=== PATIENT | male | born 1955 | race Caucasian/White ===

== ENCOUNTER 2020-11-08 08:58 | Emergency (ER) | payer MEDICARE, SELFPAY ==
[2020-11-08 08:58] VITALS: BP 161/111; PULSE 83; RESP 18; TEMP 36.6; O2SAT 97; BMI 28.9
[2020-11-08 09:06] VITALS: BMI 28.9
--- NOTE | 2020-11-08 09:42 | CT_ITS ---
STUDY: CT BRAIN WITHOUT CONTRAST REASON FOR EXAM: Male, 65 years old. Headache RADIATION DOSAGE (If Supplied By Facility): CTDIvol = ( 44.99 ) mGy, DLP = ( 812.98 ) mGycm TECHNIQUE: Transaxial CT imaging of the brain was performed without administration of intravenous contrast material. Individualized dose optimization techniques were used for this CT. COMPARISON: No relevant priors. FINDINGS: Normal soft tissue structures. Normal calvarium. Normal size ventricles and extra-axial spaces for the patient''s age. Normal white matter tracts of the cerebral hemispheres. Normal basal ganglia and thalami. Normal brainstem. Normal cerebellum. There is no intracranial hemorrhage. There are no findings of an acute ischemic infarction. Normal visualized paranasal sinuses. CT/Brain/Head without Contrast IMPRESSION: Normal unenhanced CT scan of the brain. Electronically Signed: Shane Velez MD at 10:43 EDT Tel , Service support ,
--- NOTE | 2020-11-08 09:43 | EX.ED.DYSGE1 ---
HPI History of Present Illness Chief Complaint: Neuro S/Sx Informant: patient Onset/Context/Timing Onset: Weeks (3) Context: Gradual Onset Timing: Continuous Quality: Sharp Location: Left occiput Worsened by: Nothing Relieved by: Ibuprofen Narrative Narrative: Patient presents with headache that has been getting worse over the past 3 weeks. Patient states it started out as a generalized headache but is now in the left occipital area. Patient states that his pain is sharp. Patient states he takes ibuprofen which seems to help with the pain. Patient states that over the last 3 to 4 days he has noted some left facial weakness. Patient states he is having difficulty holding water in his mouth and closing his left eye due to the weakness. Patient also admits to some dizziness where he feels off balance. PFSH PFSH no medical history Allergy/AdvReac Type Severity Reaction Status Date / Time No Known Allergies Allergy Verified 11/08/20 09:03 no surgical history Social History Smoking Status: Light Smoker (<10/day) ROS ROS ED Constitutional Constitutional ED: Denies chills or fever(s) Eyes Eyes: Denies blurry vision or change in vision ENT ENT ED: Reports ear pain left and sore throat; Denies rhinorrhea Cardiovascular Cardiovascular: Denies chest pain or palpitations Respiratory/Chest Respiratory/Chest: Denies cough or dyspnea Gastrointestinal Gastrointestinal: Denies nausea or vomiting Genitourinary Genitourinary ED: Denies dysuria or hematuria Musculoskeletal Musculoskeletal: Reports neck pain; Denies back pain Integumentary Denies abscess or rash Neurologic Neurologic: Reports headache(s) and weakness Allergic/Immunologic Allergic/Immunologic ED: Denies mouth swelling or urticaria EXAM Physical Exam Const Vital Signs: 11/08/20 08:58 Temperature 97.8 F Temperature Source Temporal Pulse Rate 83 Respiratory Rate 18 Blood Pressure 161/111 H Blood Pressure Mean 127 Pulse Ox 97 Oxygen Delivery Method Room Air Positive well nourished and well developed General Appearance ED: well developed HEENT Reports moist mucous membranes Eyes PERRL and EOMs intact bilaterally Neck supple and no JVD Resp normal respiratory effort and clear to auscultation bilaterally Cardio regular rate, regular rhythm and no murmurs GI normal to inspection, nondistended, normoactive bowel sounds and non-tender Palpation: soft Extremity normal to inspection General Extremety ED: Negative for edema or tenderness General Extremity: Negative for edema Neuro oriented x3 and no sensory deficits noted Neuro Narrative: Cranial nerves II through XII are intact except for left facial weakness. There is weakness with elevating the left eyebrow, closing the left eye, and smiling. There are no sensory deficits. Strength is otherwise 5/5 in the upper and lower extremities. Sensorium / Orientation: alert Motor Exam: strength 5/5 throughout Psych mental status grossly normal Skin no rashes or lesions noted MDM MDM MDM Narrative Medical decision making narrative: Patient was given IV fluids, Reglan, and Benadryl. CT scan of the brain was obtained. There is no acute intracranial abnormality. This was interpreted by the radiologist and reviewed by myself. CBC and comprehensive metabolic profile were obtained and were essentially within normal limits. Patient was advised of his findings. 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 Patient states his headache was still present but slightly better. Patient was given a dose of Toradol here. Patient wants to go home. Patient was instructed to rest in a dark quiet room. Patient was instructed to follow-up with his primary care physician in 5 to 7 days. Patient was instructed return if worse in any way. Patient understood and was agreeable with the plan. All questions were answered. Lab Data Attestation: I reviewed the patient's lab results. Labs: Laboratory Results - last 24 hr 11/08/20 11/08/20 09:05 09:05 WBC 9.6 RBC 5.27 Hgb 16.0 Hct 48.9 MCV 92.8 MCH 30.4 MCHC 32.7 RDW Std Deviation 44.4 H RDW Coeff of Brandie 13.1 Plt Count 425 MPV 9.1 Immature Gran % (Auto) 0.400 Neut % (Auto) 83.1 H Lymph % (Auto) 8.5 L [place] % (Auto) 5.6 Eos % (Auto) 2.0 Baso % (Auto) 0.4 Absolute Neuts (auto) 8.0 H Absolute Lymphs (auto) 0.82 L Nucleated RBC % 0 Sodium 138 Potassium 3.7 Chloride 104 Carbon Dioxide 26.0 Anion Gap 8 BUN 22 H Creatinine 1.12 Estim Creat Clear Calc 64.00 Est GFR (MDRD) Af Amer 84 Est GFR (MDRD) Non-Af 70 BUN/Creatinine Ratio 19.6 Glucose 115 H Calcium 9.1 Total Bilirubin 0.50 AST 33 ALT 114 H Alkaline Phosphatase 139 H Total Protein 7.7 Albumin 3.6 Globulin 4.1 Albumin/Globulin Ratio 0.9 Radiography Diagnostic Testing: Radiology Impression Brain CT 11/08/20 09:42 IMPRESSION: Normal unenhanced CT scan of the brain. Electronically Signed: Shane Velez MD at 10:43 EDT Tel , Service support , Discharge Plan Triage Chief Complaint: Neuro S/Sx ED Provider: Steven Alves Dx/Rx/DC Orders Clinical Impression: Almendarez's palsy, Headache Instructions: ED Almendarez's Palsy, ED Headache, Tension Primary Care Provider: Care Physician,No Primary Referrals: Gogo Garcia MD [STAFF PHYSICIAN] - 3-5 Days Care Physician,No Primary [Primary Care Provider] - Disposition Disposition: Home, Self Care
[2020-11-08 09:49] LABS: Absolute Lymphocyte Count 0.82 X10^3/uL (0.83-4.51); Basophil# 0.04 X10^3/uL; Basophil% 0.4 % (0-1); Eosinophil# 0.19 X10^3/uL; Hematocrit 48.9 % (40-54); Lymphocyte # 0.82 X10^3/ul (0.83-4.51); Lymphocyte % 8.5 % (19-41); Mean Corp Hgb Conc 32.7 g/dL (32-36); Mean Corpuscular Hgb 30.4 pg (27.0-32.0); Mean Corpuscular Volume 92.8 fL (80-94); Mean Platelet Vol. 9.1 fl (6.2-12.0); Monocyte# 0.54 X10^3/uL; Monocyte% 5.6 % (0-10); NRBC Flagged by Analyzer 0 % (0-5); Neutrophil # 8.01 X10^3/uL (2.7-7.7); Neutrophil % 83.1 % (47-70); Platelet Count 425 K/mm3 (150-450); RBC Distribution Width CV 13.1 % (11.6-14.6); RBC Distribution Width SD 44.4 fl (35.1-43.9); Red Blood Count 5.27 M/mm3 (4.6-6.2); White Blood Count 9.6 K/mm3 (4.4-11.0)
[2020-11-08] MEDS: 0.9% Normal Saline 1,000 ML 999 ML IV (09:55)
[2020-11-08] MEDS: Metoclopramide 10 MG/2 ML Vial IV (09:55)
[2020-11-08] MEDS: DiphenhydrAMINE 50 MG/ML Syringe 25 MG IV (09:55)
[2020-11-08 10:00] LABS: ALB/GLOB Ratio 0.9 RATIO (0.9-2.4); AST(SGOT) 33 U/L (15-37); Alanine Aminotransfer ALT/SGPT 114 U/L (16-61); Albumin, Serum 3.6 g/dL (3.2-5.0); Alkaline Phosphatase 139 U/L (45-117); Anion Gap 8 (5-15); BUN 22 mg/dL (7-18); BUN/Creat Ratio 19.6 RATIO (10-20); Calcium,Total 9.1 mg/dL (8.5-10.1); Chloride 104 mmol/L (98-107); Creatinine, Serum 1.12 mg/dL (0.70-1.30); EST Glomerular Filtration Rate 70 mL/min (>60); Est Glom Filt Rate - Afr Amer 84 mL/min (>60); Globulin 4.1 g/dL (2.2-4.2); Glucose 115 mg/dL (74-106); Potassium 3.7 mmol/L (3.5-5.1); Protein, Total 7.7 g/dL (6.4-8.2); Sodium Level 138 mmol/L (136-145)
[2020-11-08] MEDS: Ketorolac 15 MG/ML Vial IV (11:09)
[2020-11-08 11:10] VITALS: BP 170/101; PULSE 72; RESP 14; RESP 16; O2SAT 100
[2020-11-10 07:10] LABS: Bedside Glucose 112 mg/dL (70-110)
== END 2020-11-08 11:11 | disposition home or self-care (01) ==
PROVIDERS: Emergency Provider Emergency Medicine
DX: G51.0 Bell's palsy (principal); R51.9 Headache, unspecified; R42 Dizziness and giddiness; F17.200 Nicotine dependence, unspecified, uncomplicated
CPT/HCPCS: 70450; 80053; 82962; 85025; 96374; 96375; 99283; J7030; A4216

== ENCOUNTER 2023-01-16 19:27 | Inpatient (IN) | payer MEDICARE, SELFPAY ==
[2023-01-16 19:28] VITALS: BP 126/69; PULSE 67; RESP 16; TEMP 35.8; O2SAT 94; BMI 28.3
[2023-01-16 19:38] VITALS: BP 126/69; PULSE 67; RESP 18; TEMP 36.4; O2SAT 95
--- NOTE | 2023-01-16 20:19 | CT_ITS ---
INDICATION: abd pain, vomiting, recent CURRY drain. EXAMINATION: CT ABDOMEN AND PELVIS WITH CONTRAST - CT Abdomen And Pelvis W/ Contrast Injection TECHNIQUE: Helically acquired images were obtained of the abdomen and pelvis following IV contrast. A radiation dose optimization technique was used for this scan. IV Contrast dosage and agent: 100 cc [id number]-300 Oral contrast: None. COMPARISON: None. FINDINGS: LOWER CHEST: Trace right pleural effusion. Right-sided paraesophageal fat hernia. Patulous distal esophagus with fluid. LIVER: 2.2 cm low-attenuation lesion left lobe which cannot be further characterized on single phase study but may represent a small hemangioma. GALLBLADDER AND BILIARY TREE: Gallbladder absent with percutaneous pigtail drainage catheter in the gallbladder fossa, minimal adjacent low attenuation material. No intra- or extrahepatic biliary ductal dilation. PANCREAS: No focal cystic or solid mass. SPLEEN: Normal size without focal cystic or solid mass. ADRENAL GLANDS: No nodules. KIDNEYS AND URETERS: Normal renal size and position. No hydronephrosis. PERITONEUM: No ascites or free air. BOWEL: Normal appendix. No stomach or bowel distension. Wall thickening and inflammatory stranding about the gastric antrum and proximal duodenum. LYMPH NODES: No enlarged mesenteric or retroperitoneal lymph nodes. VESSELS: Aorta is non-dilated. URINARY BLADDER: Unremarkable. REPRODUCTIVE ORGANS: No pelvic masses. ABDOMINAL WALL: No discrete abdominal or pelvic wall hernia. BONES: No acute or aggressive abnormality. Severe degenerative changes of the left hip. CT/Abdomen/Pelvis W IV Cont ONLY IMPRESSION: Percutaneous transcatheter in the gallbladder fossa with minimal adjacent low attenuation material, no jeff fluid collection. Findings consistent with antritis/duodenitis. Trace right pleural effusion. Probable 2.2 cm hemangioma left lobe liver. Further characterization not possible on single phase study. Suggest multiphasic dedicated hepatic CT or MRI on elective basis for further evaluation. Electronically Signed: Cheo Man MD at 22:03 EDT ,
--- NOTE | 2023-01-16 20:28 | ED.VIS.GI ---
HPI HPI - GI History of Present Illness Chief Complaint: Abd Pain Informant: patient Narrative Narrative: Patient is a 67-year-old male who in November had a rupture of his gallbladder that led to an abscess of his liver. This was treated at [facility]. He had 2 drains but on January 06 his liver drain was pulled. He still has his gallbladder CURRY drain. He notes today all of a sudden he started having significant increase in his output. He states 3 times the normal amount. He also feels that his abdomen is distended and he has been having nausea and now vomiting. He states he had a solid bowel movement this morning but has not passed any gas this afternoon. Denies any fever. Is having significant pain in his abdomen but he states it is more around the umbilical area. Denies any recent fever or chills. Denies any urinary symptoms. Did receive 0.5 mg IV Dilaudid in route with only minimal relief of his symptoms. Patient states he finished his antibiotics about a week ago. [facility] 01[facility]16[facility]23 [History Last Taken Unknown] Allergy/AdvReac Type Severity Reaction Status Date / Time No Known Allergies Allergy Verified 01/16/23 19:39 Social History Smoking Status: Light Smoker (<10/day) ROS ROS ED Constitutional Constitutional ED: Denies chills or fever(s) Cardiovascular Cardiovascular: Denies chest pain Respiratory/Chest Respiratory/Chest: Denies cough Gastrointestinal Gastrointestinal: Reports abdominal pain, nausea and vomiting; Denies constipation or diarrhea Genitourinary Genitourinary ED: Denies dysuria or hematuria Musculoskeletal Musculoskeletal: Denies arthralgias or myalgias Integumentary Denies rash Neurologic Neurologic: Denies headache(s) or weakness Psychiatric Psychiatric: Denies anxiety Hematologic/Lymphatic Hematologic/Lymphatic: Denies easy bleeding or easy bruising EXAM Physical Exam Const Vital Signs: 01/16/23 19:28 01/16/23 19:38 01/16/23 20:40 Temperature 96.5 F L 97.6 F L 98.2 F Temperature Source Temporal Temporal Temporal Pulse Rate 67 67 63 Respiratory Rate 16 18 24 H Blood Pressure 126/69 H 126/69 H 116/85 H Blood Pressure Mean 88 88 95 Pulse Ox 94 95 95 Oxygen Delivery Method Room Air Room Air Room Air Positive well nourished and well developed General Appearance ED: well developed and NAD; Negative for pallor HEENT Reports moist mucous membranes Eyes PERRL and EOMs intact bilaterally Neck supple Resp normal respiratory effort and clear to auscultation bilaterally Cardio regular rate, regular rhythm and no murmurs GI GI Narrative: CURRY drain in place with bilious output. No peritoneal signs however abdomen is distended. Patient is actively retching when I evaluated him. Hypoactive bowel sounds present. Inspection: abdominal distention Back/Spine no CVA tenderness Extremity full ROM General Extremety ED: Negative for edema General Extremity: Negative for edema Neuro Sensorium / Orientation: alert, oriented to person, oriented to place and oriented to time Motor Exam: Negative for general weakness Psych mental status grossly normal and thought process normal Skin no wounds General Skin Exam: Negative for jaundice or pallor MDM MDM MDM Narrative Medical decision making narrative: Patient evaluated for vomiting and abdominal distention and severe abdominal pain. Patient last month had a gallbladder rupture with subsequent abscess. He currently has biliary drain in place. It has significant increase in its output since yesterday. Differential includes postoperative infection, small bowel obstruction, pancreatitis and colitis. Patient does have a leukocytosis of 16.8. His lactate is elevated 3.1. He is hemodynamically stable. He received 0.5 of Dilaudid in route and then requires another 1 mg for pain control. He received IV Zofran as well is a liter of IV fluids. His lipase is significantly elevated greater than 5000 and his CMP is largely normal. I am not sure if his leukocytosis is reactive from his pancreatitis or there is a secondary infection. He is afebrile in the ER. CT of the abdomen pelvis is obtained which shows a percutaneous trans catheter in the gallbladder fossa with no jeff fluid collection, findings consistent with antritis/duodenitis and a probable 2.2 cm hemangioma in the left lobe of the liver. Given his recent medical issues I would wonder if that is more of a fluid collection associated with his liver abscess. I did discuss the case with surgery here, Dr. Suresh, he reviewed the films. He feels that likely that antritis/duodenitis is incorrect read and this is actually edema of the pancreatic head. He is concerned there could be a necrotic process to the pancreatic head. If that is the case patient will potentially require IR for this. Patient is amenable to going back to [facility]. I spoke with the hospitalist at [facility] and he is excepted there. Dr. Mcmullen. We did discuss antibiotics and the hospitalist is recommended dose of Zosyn. Patient is ordered a second liter of fluid and then ordered maintenance LR. He will be kept n.p.o. due to his degree of pancreatitis. He is given another dose of 0.5 mg Dilaudid for pain control. Patient is signed out to oncoming physician pending transfer to [facility]. Lab Data Attestation: I reviewed the patient's lab results. Labs: Laboratory Results - last 24 hr 01/16/23 20:30 WBC 16.8 H RBC 4.53 L Hgb 14.1 Hct 44.7 MCV 98.7 H MCH 31.1 MCHC 31.5 L RDW Std Deviation 45.8 H RDW Coeff of Brandie 12.5 Plt Count 356 MPV 9.3 Immature Gran % (Auto) 0.500 Neut % (Auto) 89.0 H Lymph % (Auto) 5.4 L [place] % (Auto) 4.0 Eos % (Auto) 0.7 Baso % (Auto) 0.4 Absolute Neuts (auto) 15.0 H Absolute Lymphs (auto) 0.91 Nucleated RBC % 0 Sodium 142 Potassium 3.9 Chloride 109 H Carbon Dioxide 26.0 Anion Gap 7 BUN 21 H Creatinine 1.04 Estim Creat Clear Calc 69.22 Est GFR (MDRD) Af Amer 91 Est GFR (MDRD) Non-Af 75 BUN/Creatinine Ratio 20.2 H Glucose 174 H Lactic Acid 3.1 H* Calcium 8.9 Total Bilirubin 0.70 Direct Bilirubin 0.22 AST 25 ALT 53 Alkaline Phosphatase 71 Total Protein 7.3 Albumin 3.8 Globulin 3.5 Lipase > 5000 H Radiography Diagnostic Testing: Clinical Impression(s) from Imaging Studies Abdomen/Pelvis CT 01/16/23 20:19 IMPRESSION: Percutaneous transcatheter in the gallbladder fossa with minimal adjacent low attenuation material, no jeff fluid collection. Findings consistent with antritis/duodenitis. Trace right pleural effusion. Probable 2.2 cm hemangioma left lobe liver. Further characterization not possible on single phase study. Suggest multiphasic dedicated hepatic CT or MRI on elective basis for further evaluation. Electronically Signed: Cheo Man MD at 22:03 EDT , Discharge Plan Triage Chief Complaint: Abd Pain ED Provider: Shelbie Pemberton Dx/Rx/DC Orders Clinical Impression: Leukocytosis, Elevated lactic acid level, Nausea & vomiting, Abdominal pain, Acute pancreatitis Prescriptions: No Action NK Primary Care Provider: MARIEL MURPHY Referrals: Care Physician,No Primary [Non-Staff] - Disposition Disposition: Acute Care Hospital Discharge Location: [facility]
[2023-01-16] MEDS: Ondansetron 4 MG/2 ML Vial IV (20:30)
[2023-01-16] MEDS: HYDROmorphone 1 MG/ML Syringe IV (20:30)
[2023-01-16] MEDS: 0.9% Normal Saline (1000mL) 1,000 ML 1000 ML IV (20:36)
[2023-01-16 20:40] VITALS: BP 116/85; PULSE 63; RESP 24; TEMP 36.8; O2SAT 95
[2023-01-16 20:46] LABS: Absolute Lymphocyte Count 0.91 X10^3/uL (0.83-4.51); Basophil# 0.06 X10^3/uL; Basophil% 0.4 % (0-1); Eosinophil# 0.12 X10^3/uL; Eosinophils% 0.7 % (0-5); Hematocrit 44.7 % (40-54); Hemoglobin 14.1 g/dL (13.0-16.5); Lymphocyte # 0.91 X10^3/ul (0.83-4.51); Lymphocyte % 5.4 % (19-41); Mean Corp Hgb Conc 31.5 g/dL (32-36); Mean Corpuscular Hgb 31.1 pg (27.0-32.0); Mean Corpuscular Volume 98.7 fL (80-94); Mean Platelet Vol. 9.3 fl (6.2-12.0); Monocyte# 0.68 X10^3/uL; NRBC Flagged by Analyzer 0 % (0-5); Neutrophil # 14.95 X10^3/uL (2.7-7.7); Platelet Count 356 K/mm3 (150-450); RBC Distribution Width CV 12.5 % (11.6-14.6); RBC Distribution Width SD 45.8 fl (35.1-43.9); Red Blood Count 4.53 M/mm3 (4.6-6.2); White Blood Count 16.8 K/mm3 (4.4-11.0)
[2023-01-16 21:09] LABS: AST(SGOT) 25 U/L (15-37); Alanine Aminotransfer ALT/SGPT 53 U/L (16-61); Albumin, Serum 3.8 g/dL (3.2-5.0); Alkaline Phosphatase 71 U/L (45-117); Anion Gap 7 (5-15); BUN 21 mg/dL (7-18); BUN/Creat Ratio 20.2 RATIO (10-20); Bilirubin, Direct 0.22 mg/dL (0.00-0.30); Calcium,Total 8.9 mg/dL (8.5-10.1); Chloride 109 mmol/L (98-107); Creatinine, Serum 1.04 mg/dL (0.70-1.30); EST Glomerular Filtration Rate 75 mL/min (>60); Est Glom Filt Rate - Afr Amer 91 mL/min (>60); Estimated Creatinine Clearance 69.22 ml/min; Globulin 3.5 g/dL (2.2-4.2); Glucose 174 mg/dL (74-106); Lipase > 5000 U/L (13-75); Potassium 3.9 mmol/L (3.5-5.1); Protein, Total 7.3 g/dL (6.4-8.2); Sodium Level 142 mmol/L (136-145)
[2023-01-16 21:44] LABS: Lactic Acid 3.1 mmol/L (0.4-1.9)
[2023-01-17] VITALS (13 sets, daily range): BP systolic 135–205; BP diastolic 81–112; PULSE 64–89; RESP 14–20; TEMP 35.9–36.8; O2SAT 90–98; BMI 28.0
[2023-01-17] MEDS: HYDROmorphone 0.5 MG/0.5 ML SYRINGE IV ×3 (00:24→05:57)
[2023-01-17] MEDS: 0.9% Normal Saline (1000mL) 1,000 ML 999 ML IV (00:27)
[2023-01-17 00:41] LABS: Reflex Lactate? Y
[2023-01-17] MEDS: Piperacil/Tazobactam 4.5 GM in 0.9% Normal Saline (100mL MB+) 100 ML IV (00:59)
[2023-01-17] MEDS: Lactated Ringers 1,000 ML 150 ML IV ×4 (00:59→21:02)
[2023-01-17 02:14] LABS: Lactic Acid 0.8 mmol/L (0.4-1.9)
[2023-01-17 07:01] LABS: Absolute Neutrophil Count 7.1 X10^3/uL (2.0-7.7); Basophil# 0.04 X10^3/uL; Basophil% 0.4 % (0-1); Eosinophil# 0.13 X10^3/uL; Eosinophils% 1.4 % (0-5); Hematocrit 38.9 % (40-54); Hemoglobin 12.5 g/dL (13.0-16.5); Lymphocyte % 13.4 % (19-41); Mean Corp Hgb Conc 32.1 g/dL (32-36); Mean Corpuscular Hgb 31.6 pg (27.0-32.0); Mean Corpuscular Volume 98.2 fL (80-94); Monocyte# 0.52 X10^3/uL; Monocyte% 5.8 % (0-10); NRBC Flagged by Analyzer 0 % (0-5); Neutrophil # 7.07 X10^3/uL (2.7-7.7); Neutrophil % 78.8 % (47-70); Platelet Count 286 K/mm3 (150-450); RBC Distribution Width CV 12.6 % (11.6-14.6); RBC Distribution Width SD 45.2 fl (35.1-43.9); Red Blood Count 3.96 M/mm3 (4.6-6.2)
[2023-01-17 07:25] LABS: ALB/GLOB Ratio 1.1 RATIO (0.9-2.4); AST(SGOT) 18 U/L (15-37); Alanine Aminotransfer ALT/SGPT 40 U/L (16-61); Albumin, Serum 3.3 g/dL (3.2-5.0); Alkaline Phosphatase 54 U/L (45-117); Anion Gap 4 (5-15); BUN 17 mg/dL (7-18); BUN/Creat Ratio 22.9 RATIO (10-20); Calcium,Total 8.1 mg/dL (8.5-10.1); Chloride 112 mmol/L (98-107); Creatinine, Serum 0.74 mg/dL (0.70-1.30); EST Glomerular Filtration Rate 111 mL/min (>60); Est Glom Filt Rate - Afr Amer 134 mL/min (>60); Estimated Creatinine Clearance 71.99 ml/min; Globulin 2.9 g/dL (2.2-4.2); Glucose 113 mg/dL (74-106); Potassium 3.9 mmol/L (3.5-5.1); Protein, Total 6.2 g/dL (6.4-8.2); Sodium Level 141 mmol/L (136-145)
--- NOTE | 2023-01-17 09:04 | NURSING ---
CALLED [facility]. TALKED TO OLGA. STILL WAITING ON BED. ADVISED TO ADMIT PATIENT WHILE WAITING ON A BED.
--- NOTE | 2023-01-17 09:17 | HP.PCM_ITS ---
HPI - General General Date of Admission: 01/17/23 Date of Service: 01/17/23 Chief Complaint: abdominal pain HPI Narrative MIGUE BOURGEOIS, is a 67 M with a PMH as outlined who presents via the ED on 01/17/2023 with a complaitn of abdomina pain. He had a recent history of gallbladder rubture with abscess to the liver in November 2022. HE was discharged home with 2 drains in situ, but one of the drains subsequently fell out; gallbladder BP drain is still in place. He noticed he had increased output yesterday, much more than usual. He denied any fever, chills, nausea, vomiting or any other symptoms. Review of systems was otherwise negative. Vitals in the ED were BP of 167/106, VT of 64, RR of 14 and oxygen sats of 98% on room air. CBC showed hb of 12.5 and wbc of 9; platelets were 286. Chemistry showed sodium of 141 and Cr of 0.74, with lipase >5000. CT of the abdomen and pelvis showed percutaneous transcaheter in hte gallbladder fossa with minimal adjacent low attenuation material,a nd findings consistent wiht antritis/duodenitis, as well as probable 2.2cm hemangioma of left liver. ED physician discussed with general surgeon implementation services analyst, and plan was to transfer patient to [facility] where he had his surgery, which he was agreeable to. Patient however still in [facility] ED pending bed availability, so is being admitted pending bed availability at [facility]. [facility] Medical History (Updated 01/17/23 @ 11:21 by Blessing Rodriguez) Alcohol abuse GERD (gastroesophageal reflux disease) Hypertension Pancreatitis Smoker Substance abuse Home Medications ibuprofen 200 mg capsule 400 mg PO Q6H PRN pain 01/17/23 [History Last Taken 01/16/23] Allergy/AdvReac Type Severity Reaction Status Date / Time No Known Allergies Allergy Verified 01/16/23 19:39 Social History Smoking Status: Light Smoker (<10/day) ROS Review of Systems ROS Unobtainable: Denies due to encephalopathy Constitutional Constitutional: Denies anorexia, chills, fatigue, fever(s), malaise, weakness or weight loss Eyes Eyes: Denies change in vision ENT HEENT: Denies dysphagia, headache(s) or throat swelling Cardiovascular Cardiovascular: Denies chest pain, edema, orthopnea, palpitations, paroxysmal nocturnal dyspnea or syncope Respiratory/Chest Respiratory/Chest: Denies cough, shortness of breath at rest or shortness of breath with exertion Gastrointestinal Gastrointestinal: Denies abdominal pain, diarrhea, nausea or vomiting Genitourinary Genitourinary: Denies dysuria Musculoskeletal Musculoskeletal: Denies back pain or muscle weakness Neurologic Neurologic: Denies confusion, dizziness, lack of coordination or numbness Psychiatric Psychiatric: Denies anxiety Vital Signs Vital Signs Vital Signs: 01/16/23 19:28 01/16/23 19:38 01/16/23 20:40 Temperature 96.5 F L 97.6 F L 98.2 F Temperature Source Temporal Temporal Temporal Pulse Rate 67 67 63 Respiratory Rate 16 18 24 H Blood Pressure 126/69 H 126/69 H 116/85 H Blood Pressure Mean 88 88 95 Pulse Ox 94 95 95 Oxygen Delivery Method Room Air Room Air Room Air 01/17/23 01:15 01/17/23 02:03 01/17/23 03:08 Temperature 97.6 F L Temperature Source Oral Pulse Rate 65 67 65 Respiratory Rate 20 H 18 18 Blood Pressure 135/81 H 142/87 H 144/83 H Blood Pressure Mean 96 105 103 Pulse Ox 90 94 92 Oxygen Delivery Method Room Air Room Air Room Air 01/17/23 05:07 01/17/23 05:07 01/17/23 06:55 Temperature 98.1 F 98.1 F 98.2 F Temperature Source Oral Oral Oral Pulse Rate 78 82 Respiratory Rate 18 18 Blood Pressure 163/97 H 151/87 H Blood Pressure Mean 119 108 Pulse Ox 93 92 Oxygen Delivery Method Room Air Room Air 01/17/23 06:55 01/17/23 08:00 Temperature 97.6 F L Temperature Source Temporal Pulse Rate 64 Respiratory Rate 14 Blood Pressure 151/87 H 167/106 H Blood Pressure Mean 108 126 Pulse Ox 98 Oxygen Delivery Method Room Air Weight Weight: 197 lb 5.019 oz Body Mass Index (BMI) 28.3 Physical Exam Const alert, oriented x3 and no apparent distress General Appearance: cooperative and well developed HEENT normocephalic, head/scalp atraumatic, moist oral mucous membranes and oropharynx normal Eyes PERRL and EOMs intact bilaterally Neck no lymphadenopathy and supple General: trachea midline Lymph Lymphatic: no lymphadenopathy noted and no lymphedema noted Resp normal respiratory effort, normal air movement and clear to auscultation bilaterally Cardio regular rate, regular rhythm, S1 normal heart sound and S2 normal heart sound Cardio Narrative: grade 2-3 systolic murmur loudest at the aortic region GI normal to inspection, nondistended, normoactive bowel sounds and soft to palpation GI Narrative: mildly distended abdomen, nontender, no organomegaly. gallbladder CURRY drain in situ, draining bilious fluid. Well healed scar at site of liver drain insertion Extremity normal capillary refill, no clubbing, cyanosis or edema and no calf tenderness General Extremity: no tenderness to palpation of joints or extremities Skin General Skin Exam: no breakdown Neuro CN's II-XII intact bilaterally, no focal motor deficits, no sensory deficits noted and deep tendon reflexes 2+ bilaterally Psych thought process normal, cooperative and affect normal Appearance: appropriate Results Lab / Micro Data 01/17/23 06:45 01/17/23 06:45 Labs: Laboratory Results - last 24 hr 01/16/23 20:30: WBC 16.8 H, RBC 4.53 L, Hgb 14.1, Hct 44.7, MCV 98.7 H, MCH 31.1, MCHC 31.5 L, RDW Std Deviation 45.8 H, RDW Coeff of Brandie 12.5, Plt Count 356, MPV 9.3, Immature Gran % (Auto) 0.500, Neut % (Auto) 89.0 H, Lymph % (Auto) 5.4 L, Glynn % (Auto) 4.0, Eos % (Auto) 0.7, Baso % (Auto) 0.4, Absolute Neuts (auto) 15.0 H, Absolute Lymphs (auto) 0.91, Nucleated RBC % 0, Sodium 142, Potassium 3.9, Chloride 109 H, Carbon Dioxide 26.0, Anion Gap 7, BUN 21 H, Creatinine 1.04, Estim Creat Clear Calc 69.22, Est GFR (MDRD) Af Amer 91, Est GFR (MDRD) Non-Af 75, BUN/Creatinine Ratio 20.2 H, Glucose 174 H, Lactic Acid 3.1 H*, Calcium 8.9, Total Bilirubin 0.70, Direct Bilirubin 0.22, AST 25, ALT 53, Alkaline Phosphatase 71, Total Protein 7.3, Albumin 3.8, Globulin 3.5, Lipase > 5000 H 01/17/23 01:05: Lactic Acid 0.8 01/17/23 06:45: WBC 9.0, RBC 3.96 L, Hgb 12.5 L, Hct 38.9 L, MCV 98.2 H, MCH 31.6, MCHC 32.1, RDW Std Deviation 45.2 H, RDW Coeff of Brandie 12.6, Plt Count 286, MPV 9.0, Immature Gran % (Auto) 0.200, Neut % (Auto) 78.8 H, Lymph % (Auto) 13.4 L, Glynn % (Auto) 5.8, Eos % (Auto) 1.4, Baso % (Auto) 0.4, Absolute Neuts (auto) 7.1, Absolute Lymphs (auto) 1.20, Nucleated RBC % 0, Sodium 141, Potassium 3.9, Chloride 112 H, Carbon Dioxide 25.0, Anion Gap 4 L, BUN 17, Creatinine 0.74, Estim Creat Clear Calc 71.99, Est GFR (MDRD) Af Amer 134, Est GFR (MDRD) Non-Af 111, BUN/Creatinine Ratio 22.9 H, Glucose 113 H, Calcium 8.1 L, Total Bilirubin 0.60, AST 18, ALT 40, Alkaline Phosphatase 54, Total Protein 6.2 L, Albumin 3.3, Globulin 2.9, Albumin/Globulin Ratio 1.1 Radiology Impression Abdomen/Pelvis CT 01/16/23 20:19 IMPRESSION: Percutaneous transcatheter in the gallbladder fossa with minimal adjacent low attenuation material, no jeff fluid collection. Findings consistent with antritis/duodenitis. Trace right pleural effusion. Probable 2.2 cm hemangioma left lobe liver. Further characterization not possible on single phase study. Suggest multiphasic dedicated hepatic CT or MRI on elective basis for further evaluation. Electronically Signed: Cheo Man MD at 22:03 EDT , Assessment & Plan Assessment/Plan (1) Acute pancreatitis: (2) Abdominal pain: (3) Nausea & vomiting: PLAN: Plan #Acute pancreatitis * admitted with abdominal pain. Recently was admitted at [facility] and had acute cholecystitis with liver abscess. He had a drain inserted in the liver and the gallbladder. He states the liver drain was taken out to just about a week ago. * CT of the abdomen showed percutaneous transcatheter in the gallbladder fossa with minimal adjacent low attenuation material and no jeff fluid collection. General surgery reviewed imaging and thought that patient likely had acute pancreatitis. This was borne out by markedly elevated lipase of more than 5000. * Keep patient NPO. Hydrate with IV fluids. IV Dilaudid every 3 as needed. * Patient awaiting transfer to [facility] where he has been accepted pending bed availability. If he is still here by tomorrow then will consult general surgery to see if they have any thoughts about further action. * #Recent probable acute cholecystitis: S/p percutaneous transcatheter in the gallbladder.. Maintain drain in place. DVT prophylaxis: Lovenox Code status: full code * Patient counseled extensively about different types of CODE STATUS including full code, DNR CCA and DNR CCA. * Patient elects to be full code. * Total [id number] time 17 minutes. * Disposition: Transfer to [facility] pending bed availability. Charges/Coding Visit Charges Inpatient E&M: 34485 Init Hosp L3 Procedures Hospitalists Procedures: 32880 Advncd Care Plan 30 Min
--- NOTE | 2023-01-17 09:30 | NURSING ---
DR KILLIAN COMING TO SEE PATIENT
--- NOTE | 2023-01-17 09:32 | NURSING ---
MS KILLIAN ACUTE PANCREATITIS
[2023-01-17] MEDS: Ketorolac 15 MG/ML Vial IV (10:24)
[2023-01-17] MEDS: HYDROmorphone 1 MG/ML Syringe IV ×4 (10:24→22:43)
[2023-01-17] MEDS: 0.9% Saline Lock 10 ML Syringe IV (18:08)
[2023-01-17] MEDS: hydrALAZINE 20 MG/ML Vial 10 MG IV (18:08)
[2023-01-17] MEDS: cloNIDine HCl 0.2 MG Tablet PO (18:33)
[2023-01-17] MEDS: Piperacil/Tazobactam 3.375 GM in 0.9% Normal Saline (50mL MB+) 50 ML IV (21:02)
[2023-01-18 02:00] VITALS: BP 144/85; PULSE 79; RESP 15; TEMP 36.4; O2SAT 95
[2023-01-18] MEDS: Lactated Ringers 1,000 ML 150 ML IV (03:03)
[2023-01-18] MEDS: HYDROmorphone 1 MG/ML Syringe IV ×2 (03:03→06:17)
[2023-01-18 03:15] LABS: Absolute Lymphocyte Count 1.07 X10^3/uL (0.83-4.51); Absolute Neutrophil Count 10.1 X10^3/uL (2.0-7.7); Basophil# 0.04 X10^3/uL; Basophil% 0.3 % (0-1); Eosinophil# 0.14 X10^3/uL; Eosinophils% 1.2 % (0-5); Hematocrit 38.3 % (40-54); Hemoglobin 12.2 g/dL (13.0-16.5); Lymphocyte # 1.07 X10^3/ul (0.83-4.51); Lymphocyte % 8.9 % (19-41); Mean Corp Hgb Conc 31.9 g/dL (32-36); Mean Corpuscular Volume 97.2 fL (80-94); Mean Platelet Vol. 8.7 fl (6.2-12.0); Monocyte# 0.69 X10^3/uL; Monocyte% 5.7 % (0-10); NRBC Flagged by Analyzer 0 % (0-5); Neutrophil # 10.07 X10^3/uL (2.7-7.7); Neutrophil % 83.6 % (47-70); Platelet Count 267 K/mm3 (150-450); RBC Distribution Width CV 12.5 % (11.6-14.6); RBC Distribution Width SD 44.7 fl (35.1-43.9); Red Blood Count 3.94 M/mm3 (4.6-6.2); White Blood Count 12.1 K/mm3 (4.4-11.0)
[2023-01-18 03:45] VITALS: BP 144/85; PULSE 79; RESP 14; TEMP 36.6; O2SAT 95
[2023-01-18 03:47] LABS: AST(SGOT) 12 U/L (15-37); Alanine Aminotransfer ALT/SGPT 31 U/L (16-61); Albumin, Serum 2.9 g/dL (3.2-5.0); Alkaline Phosphatase 50 U/L (45-117); Anion Gap 5 (5-15); BUN 12 mg/dL (7-18); BUN/Creat Ratio 19.8 RATIO (10-20); Calcium,Total 8.1 mg/dL (8.5-10.1); Chloride 108 mmol/L (98-107); EST Glomerular Filtration Rate 141 mL/min (>60); Est Glom Filt Rate - Afr Amer 170 mL/min (>60); Estimated Creatinine Clearance 71.99 ml/min; Glucose 82 mg/dL (74-106); Potassium 3.6 mmol/L (3.5-5.1); Protein, Total 5.9 g/dL (6.4-8.2); Sodium Level 139 mmol/L (136-145)
[2023-01-18] MEDS: Piperacil/Tazobactam 3.375 GM in 0.9% Normal Saline (50mL MB+) 50 ML IV (05:03)
[2023-01-18 08:00] VITALS: BP 151/89; PULSE 74; RESP 18; TEMP 36.6; O2SAT 94
--- NOTE | 2023-01-18 08:03 | PCM.PN.BLA ---
Progress Note Patient seen and examined briefly this morning. He notifies me that he has been formally excepted with a available bed at [facility] in [place] and is due to depart in about 15 minutes. He reportedly underwent cholecystostomy tube placement 1 month ago but had recurrence of his abdominal discomfort and thus occasioned his presentation here after not receiving clear direction from [place] when initially reaching out. On exam patient has significant abdominal distention with tenderness but there are no peritoneal signs. He appears clinically stable otherwise. Patient has a number of questions related to his clinical condition but I deferred all answers on management to his evaluating team at the receiving hospital. Will not bill for a formal consult given patient's imminent departure.
--- NOTE | 2023-01-18 15:45 | PCM.DC.SUM ---
Providers Date of Admission: 01/17/23 Date of Discharge: 01/18/23 Primary Care Physician: MARIEL MUPRHY Reason For Visit: ACUTE PANCREATITIS Diagnosis Discharge Diagnosis (1) Acute pancreatitis: Status: Acute Code(s): K85.90 - Acute pancreatitis without necrosis or infection, unspecified (2) Abdominal pain: Status: Acute Code(s): R10.9 - Unspecified abdominal pain (3) Nausea & vomiting: Status: Acute Code(s): R11.2 - Nausea with vomiting, unspecified Plan #Acute pancreatitis admitted with abdominal pain. Recently was admitted at [facility] and had acute cholecystitis with liver abscess. He had a drain inserted in the liver and the gallbladder. He states the liver drain was taken out to just about a week ago. CT of the abdomen showed percutaneous transcatheter in the gallbladder fossa with minimal adjacent low attenuation material and no jeff fluid collection. General surgery reviewed imaging and thought that patient likely had acute pancreatitis. This was borne out by markedly elevated lipase of more than 5000. Keep patient NPO. Hydrate with IV fluids. IV Dilaudid every 3 as needed. Patient awaiting transfer to [facility] where he has been accepted pending bed availability. If he is still here by tomorrow then will consult general surgery to see if they have any thoughts about further action. #Recent probable acute cholecystitis: S/p percutaneous transcatheter in the gallbladder.. Maintain drain in place. DVT prophylaxis: Lovenox Code status: full code Patient counseled extensively about different types of CODE STATUS including full code, DNR CCA and DNR CCA. Patient elects to be full code. Total [id number] time 17 minutes. Disposition: Transfer to [facility] pending bed availability. Medications at Discharge Home Medications ibuprofen 200 mg capsule 400 mg PO Q6H PRN pain 01/17/23 Hospital Course Operations None Procedures None Summary of Care Provided Minutes Spent on Discharge: 47 Hospital Course: MIGUE BOURGEOIS, is a 67 M with a PMH as outlined who presents via the ED on 01/17/2023 with a complaitn of abdomina pain. He had a recent history of gallbladder rubture with abscess to the liver in November 2022. HE was discharged home with 2 drains in situ, but one of the drains subsequently fell out; gallbladder BP drain is still in place. He noticed he had increased output yesterday, much more than usual. He denied any fever, chills, nausea, vomiting or any other symptoms. Review of systems was otherwise negative. Vitals in the ED were BP of 167/106, WA of 64, RR of 14 and oxygen sats of 98% on room air. CBC showed hb of 12.5 and wbc of 9; platelets were 286. Chemistry showed sodium of 141 and Cr of 0.74, with lipase >5000. CT of the abdomen and pelvis showed percutaneous transcaheter in hte gallbladder fossa with minimal adjacent low attenuation material,a nd findings consistent wiht antritis/duodenitis, as well as probable 2.2cm hemangioma of left liver. ED physician discussed with general surgeon puff iron operator, and plan was to transfer patient to [facility] where he had his surgery, which he was agreeable to. Patient however still in [facility] ED pending bed availability, so was admitted pending bed availability at [facility]. General surgery was consulted and he was noted to have some erythema around the site of the gallbladder tube insertion. He was therefore started on IV Zosyn. Blood pressure was elevated but this subsequently came down with treatment. Patient obtained a bed at [facility] in the early hours of 01/18/2023. He was therefore transferred to [facility]. Patient left before this hospitalist could evaluate him so he could not be seen and examined prior to his departure. Physical Exam Narrative examination not done as patient left for [facility] before this hospitalist could see and evaluate him Weight / BMI Weight Weight: 195 lb 15.855 oz Body Mass Index (BMI) 28.0 ABG / Lab / Microbiology Data 01/18/23 03:10 01/18/23 03:10 Laboratory: Laboratory Results - last 24 hr 01/18/23 03:10: WBC 12.1 H, RBC 3.94 L, Hgb 12.2 L, Hct 38.3 L, MCV 97.2 H, MCH 31.0, MCHC 31.9 L, RDW Std Deviation 44.7 H, RDW Coeff of Brandie 12.5, Plt Count 267, MPV 8.7, Immature Gran % (Auto) 0.300, Neut % (Auto) 83.6 H, Lymph % (Auto) 8.9 L, Crawford % (Auto) 5.7, Eos % (Auto) 1.2, Baso % (Auto) 0.3, Absolute Neuts (auto) 10.1 H, Absolute Lymphs (auto) 1.07, Nucleated RBC % 0, Sodium 139, Potassium 3.6, Chloride 108 H, Carbon Dioxide 26.0, Anion Gap 5, BUN 12, Creatinine 0.60 L, Estim Creat Clear Calc 71.99, Est GFR (MDRD) Af Amer 170, Est GFR (MDRD) Non-Af 141, BUN/Creatinine Ratio 19.8, Glucose 82, Calcium 8.1 L, Total Bilirubin 0.80, AST 12 L, ALT 31, Alkaline Phosphatase 50, Total Protein 5.9 L, Albumin 2.9 L, Globulin 3.0, Albumin/Globulin Ratio 1.0 Meaningful Use Info Meaningful Use Diagnoses (Choose all that apply): None applicable Discharge Plan Admission Admit Date/Time: 01/17/23 09:26 Attending Provider: Selena Araya Primary Care Provider: MARIEL MURPHY Discharge Orders/Prescriptions Prescriptions: No Action ibuprofen 200 mg capsule 400 mg PO Q6H PRN (Reason: pain) Referrals / Follow Up: MARIEL MURPHY [Other] Care Physician,No Primary [Non-Staff] - Disposition Disposition (needs filled in before D/C Order can be placed): Acute Care Hospital Charges/Coding Visit Charges Inpatient E&M: 31329 Disch Hosp >30min
== END 2023-01-18 09:10 | disposition short-term general hospital (02) | DRG 440 ==
LOC: ED 01-17 00:02 → ICU 01-17 10:39
PROVIDERS: Emergency Medicine; Admitting Provider Student in an Organized Health Care Education/Training Program; Emergency Provider Emergency Medicine; Visit Provider Student in an Organized Health Care Education/Training Program
DX: K85.90 Acute pancreatitis without necrosis or infection, unspecified (principal); F17.200 Nicotine dependence, unspecified, uncomplicated
CPT/HCPCS: 74177; 80048; 80053; 80076; 83605; 83690; 85025; 99285; J7030; J7120; Q9967; A4216; J2405